=== PATIENT | female | born 1945 | race Caucasian/White ===

== ENCOUNTER 2016-12-26 17:36 | Emergency (ER) | payer MEDICAID, MEDICARE ==
[2016-12-26] MEDS ORDERED: Acetaminophen TAB* 325 MG PO ONE (18:35)
--- NOTE | 2016-12-26 19:10 | ED ---
Lower Extremity - HPI Summary HPI Summary: Patient missed a step and inverted her ankle. She fell to the ground and was unable to bear weight on it afterwards. She has swelling and pain over the lateral ankle and on the lateral aspect of the midfoot. She has a history of ankle sprains and foot fracture. She denies N/T. - History of Current Complaint Chief Complaint: EDExtremityLower Stated Complaint: FALL , LEFT ANKLE PAIN Time Seen by Provider: 12/26/16 18:04 Hx Obtained From: Patient Mechanism Of Injury: Twisted Onset of Pain: Immediate Onset/Duration: Hours Severity Initially: Moderate Severity Currently: Moderate Pain Intensity: 4 Timing: Constant Location: Is Discrete @ - left ankle/foot Character Of Pain: Sharp, Aching, Stiffness Associated Signs And Symptoms: Positive: Swelling Aggravating Factor(s): Standing, Movement Alleviating Factor(s): Nothing Able to Bear Weight: No - Allergies/Home Medications Allergies/Adverse Reactions: Allergies Allergy/AdvReac Type Severity Reaction Status Date / Time Codeine Allergy Severe Difficulty Verified 02/13/16 15:15 Breathing Aspirin Allergy Intermediate Bleeding Verified 02/13/16 15:15 Eggs or Egg-derived Products Allergy Intermediate Swelling Verified 02/13/16 15: 15 Latex Allergy Intermediate Rash Verified 02/13/16 15:15 Penicillins [PCN] Allergy Unknown Unknown Verified 02/13/16 15:15 Reaction Details Bupropion [From Wellbutrin] Allergy Unknown Verified 02/13/16 15:15 Reaction Details Cefaclor [From Ceclor] Allergy Unknown Verified 02/13/16 15:15 Reaction Details Cephalexin [From Keflex] Allergy Unknown Verified 02/13/16 15:15 Reaction Details Hundred Allergy Hives Verified 02/13/16 15:15 Nabumetone [From Relafen] Allergy Nausea And Verified 02/13/16 15:15 Vomiting scallops Allergy Mild Diarrhea Uncoded 02/13/16 15:15 VITAMIN C Allergy Rash Uncoded 02/13/16 15:15 PMH/Surg Hx/FS Hx/Imm Hx Cardiovascular History: Reports: Hx Angina, Hx Hypertension, Other Cardiovascular Problems/Disorders - stent AAA, mitral regurg Denies: Hx Coronary Artery Disease, Hx Hypercholesterolemia, Hx Myocardial Infarction, Hx Valvular Heart Disease Respiratory History: Reports: Hx Chronic Obstructive Pulmonary Disease (COPD), Hx Sleep Apnea - current CPAP user, Other Respiratory Problems/Disorders - 2L O2 supplemental Denies: Hx Asthma GI History: Reports: Other GI Disorders - ulcer early 70s History: Reports: Hx Kidney Infection - IN THE PAST, Other Problems/ Disorders - Past hx infections, urinary retention Musculoskeletal History: Reports: Hx Arthritis, Other Musculoskeletal History - R knee, arthritis bilat hands, bulging disks lumbar, scoliosis Sensory History: Reports: Hx Cataracts - BILATERAL, Hx Contacts or Glasses Denies: Hx Hearing Aid Opthamlomology History: Reports: Hx Cataracts - BILATERAL, Hx Contacts or Glasses - Cancer History Hx Chemotherapy: No Hx Radiation Therapy: No - Surgical History Surgery Procedure, Year, and Place: x 2, modified fadumo L knee 1979, artichoke procedure R hand 1997, appendectomy with removal ovarian cysts , AAA stent placement 2009, hysterectomy Hx Anesthesia Reactions: Yes - BLOOD PRESSURE DROPPED Infectious Disease History: No Infectious Disease History: Denies: Traveled Outside the [place] in Last 30 Days - Family History Known Family History: Positive: None - Social History Occupation: Retired Lives: Alone Alcohol Use: Rare Substance Use Type: Reports: None Smoking Status (MU): Former Smoker Type: Cigarettes Amount Used/How Often: 1 PPD X 44 YEARS Review of Systems Positive: Myalgia, Decreased ROM, Edema Negative: Paresthesia, Numbness All Other Systems Reviewed And Are Negative: Yes Physical Exam Triage Information Reviewed: Yes Vital Signs On Initial Exam: Initial Vitals Temp Pulse Resp BP Pulse Ox 98.4 F 93 20 146/80 100 12/26/16 17:52 12/26/16 17:52 12/26/16 17:52 12/26/16 17:52 12/26/16 17:52 Vital Signs Reviewed: Yes Appearance: Positive: Well-Appearing, Well-Nourished, Pain Distress Skin: Positive: Warm, Skin Color Reflects Adequate Perfusion, Dry, Soft Head/Face: Positive: Normal Head/Face Inspection Eyes: Positive: EOMI, KADIE, Conjunctiva Clear ENT: Positive: Hearing grossly normal Respiratory/Lung Sounds: Positive: Breath Sounds Present Cardiovascular: Positive: RRR Musculoskeletal: Positive: Limited @ - movement in any plane of the left ankle is limited by pain, Pain @ - TTP medial and lateral malleoli and base of the fifth metatarsal., Edema Left - lateral ankle Neurological: Positive: Sensory/Motor Intact, Alert, Oriented to Person Place, Time, NV Bundle Intact Distally Psychiatric: Positive: Affect/Mood Appropriate AVPU Assessment: Alert Diagnostics - Vital Signs Vital Signs Temp Pulse Resp BP Pulse Ox 12/26/16 17:54 98.4 F 93 20 146/80 100 12/26/16 17:52 98.4 F 93 20 146/80 100 - Laboratory Lab Statement: Any lab studies that have been ordered have been reviewed, and results considered in the medical decision making process. - Radiology No standard instances Xray Interpretation: No Acute Changes Radiology Interpretation Completed By: Radiologist Lower Extremity Course/Dx - Diagnoses Differential Diagnosis/HQI/PQRI: Positive: Arthritis, Bursitis, Cellulitis, Contusion, Fracture (Closed), Sprain, Strain Provider Diagnoses: Left ankle sprain Discharge - Discharge Plan Condition: Stable Disposition: HOME Patient Education Materials: Ankle Sprain (ED), Ankle Stirrup Splint (ED) Referrals: Angella Hair MD [Primary Care Provider] - Additional Instructions: Wear your splint to protect you as your pain improves. Come out of the splint several times daily to perform gentle range of motion exercises to avoid stiffness. Elevate your ankle above your heart and apply ice for 20 minutes several times daily to decrease swelling and pain. Use Tylenol for pain. Follow- up with your primary care provider in 5-7 days for evaluation if your symptoms do not begin to improve. Return to the emergency department if your symptoms worsen.
[2016-12-26] MEDS ORDERED: Ibuprofen TAB* 400 MG PO ONE (19:27)
--- NOTE | 2016-12-26 20:04 | RAD ---
Indication: Left ankle pain. 3 views of left ankle demonstrate soft tissue swelling. There is no fracture or dislocation. No other bone or joint abnormality is identified. IMPRESSION: Soft tissue swelling laterally without fracture.
--- NOTE | 2016-12-26 20:10 | RAD ---
Indication: Left foot pain. 3 views of left foot demonstrates no fracture or dislocation. No other bone or joint abnormality is identified. IMPRESSION: No fracture of the left foot is noted.
[2016-12-26 20:34] VITALS: BP 135/66
== END 2016-12-26 20:33 | disposition home or self-care (01) ==
LOC: ED 17:36
DX: S93.402A Sprain of unspecified ligament of left ankle, initial encounter (principal); M25.572 Pain in left ankle and joints of left foot; W19.XXXA Unspecified fall, initial encounter; Y93.9 Activity, unspecified; Y92.9 Unspecified place or not applicable; Y99.9 Unspecified external cause status; Z87.891 Personal history of nicotine dependence
CPT/HCPCS: 99282; A9270-GY